=== PATIENT | male | born 1955 | race Two or more races ===

== ENCOUNTER 2020-12-03 09:59 | Outpatient (REF) | payer OTHER, SELFPAY ==
[2020-12-03 11:21] LABS: MANUAL DIFF FLAG NO
[2020-12-03 11:42] LABS: Basophils Absolute Auto 0.1 X10*3/uL (0.0-0.2); Basophils Percent Auto 0.8 % (0-2); Eosinophils Absolute Auto 0.2 X10*3/uL (0.0-0.4); Eosinophils Percent Auto 2.3 % (0-4); Hematocrit 52.4 % (42-52); Hemoglobin 17.1 g/dl (14.0-18.0); Imm Gran Abs Auto 0.09 X10*3/uL (0.00-0.03); Imm Gran Pct Auto 0.9 % (0.0-0.4); Lymphocytes Absolute Auto 2.7 X10*3/uL (1.2-4.9); Lymphocytes Percent Auto 26.2 % (20-40); Mean Corpuscular HGB Conc 32.6 g/dl (31.0-36.0); Mean Corpuscular Hemoglobin 28.3 pg (27.0-33.0); Mean Corpuscular Volume 86.8 fL (80-98); Mean Platelet Volume 10.2 fL (9.4-12.4); Monocytes Absolute Auto 0.8 X10*3/uL (0.1-1.2); Monocytes Percent Auto 7.9 % (2-11); Neutrophils Absolute Auto 6.4 X10*3/uL (2.0-8.3); Neutrophils Percent Auto 61.9 % (45-73); Platelet Count 285 X10*3/uL (160-400); Red Blood Count 6.04 X10*6/uL (4.60-5.80); Red Cell Distribution Width 18.6 % (11.0-16.0); White Blood Count 10.4 X10*3/uL (4.8-10.8)
[2020-12-03 12:14] LABS: Alanine Aminotransferase 40 U/L (0-40); Albumin Level 3.9 g/dL (3.5-5.0); Alkaline Phosphatase 151 U/L (39-117); Anion Gap 14 (12-20); Aspartate Amino Transferase 27 U/L (5-37); Bilirubin Total 0.3 mg/dL (0.0-1.0); Blood Urea Nitrogen 14 mg/dL (9-16); Calcium 9.7 mg/dL (8.4-10.2); Carbon Dioxide 26 mmol/L (22-29); Chloride 101 mmol/L (96-108); Cholesterol 183 mg/dL; Estimated Glomerular Filt Rate > 60; Glucose Random 114 mg/dL (60-115); HDL Cholesterol 30 mg/dL; Potassium 4.2 mmol/L (3.3-5.1); Sodium 137 mmol/L (135-145); Total Protein 8.1 g/dL (6.5-8.0); Triglycerides 810 mg/dL
[2020-12-03 12:27] LABS: Vitamin B12 607 pg/mL (200-900)
[2020-12-03 13:07] LABS: Estimated Average Glucose 128 mg/dL; Hemoglobin A1c % 6.1 %
== END 2020-12-03 10:00 | disposition home or self-care (01) ==
LOC: HO.LAB 09:59
PROVIDERS: PCP Internal Medicine; Visit Provider Internal Medicine
DX: Z00.00 Encounter for general adult medical examination without abnormal findings (principal); E78.00 Pure hypercholesterolemia, unspecified; I10 Essential (primary) hypertension; R73.01 Impaired fasting glucose; F17.200 Nicotine dependence, unspecified, uncomplicated
CPT/HCPCS: 36415; 80053; 80061; 82607; 83036; 85025

== ENCOUNTER 2021-07-03 08:48 | Outpatient (REF) | payer OTHER, SELFPAY ==
[2021-07-03 08:55] LABS: MANUAL DIFF FLAG NO
[2021-07-03 10:04] LABS: Basophils Absolute Auto 0.1 X10*3/uL (0.0-0.2); Basophils Percent Auto 0.5 % (0-2); Eosinophils Absolute Auto 0.3 X10*3/uL (0.0-0.4); Hematocrit 49.5 % (42.0-52.0); Hemoglobin 15.7 g/dl (14.0-18.0); Imm Gran Abs Auto 0.08 X10*3/uL (0.00-0.03); Imm Gran Pct Auto 0.7 % (0.0-0.4); Lymphocytes Absolute Auto 3.6 X10*3/uL (1.2-4.9); Lymphocytes Percent Auto 31.8 % (20-40); Mean Corpuscular HGB Conc 31.7 g/dl (31.0-36.0); Mean Corpuscular Hemoglobin 28.3 pg (27.0-33.0); Mean Corpuscular Volume 89.4 fL (80.0-98.0); Mean Platelet Volume 10.3 fL (9.4-12.4); Monocytes Absolute Auto 1.1 X10*3/uL (0.1-1.2); Monocytes Percent Auto 10.1 % (2-11); Neutrophils Absolute Auto 6.1 x10*3/uL (2.0-8.3); Neutrophils Percent Auto 53.9 % (45-73); Platelet Count 269 X10*3/uL (160-400); Red Blood Count 5.54 X10*6/uL (4.60-5.80); Red Cell Distribution Width 16.9 % (11.0-16.0); White Blood Count 11.3 X10*3/uL (4.8-10.8)
[2021-07-03 10:14] LABS: Estimated Average Glucose 134 mg/dL; Hemoglobin A1c % 6.3 %
[2021-07-03 10:28] LABS: Alanine Aminotransferase 32 U/L (0-40); Alkaline Phosphatase 91 U/L (39-117); Anion Gap 13 (12-20); Aspartate Amino Transferase 27 U/L (5-37); Bilirubin Total 0.5 mg/dL (0.0-1.0); Blood Urea Nitrogen 11 mg/dL (9-16); Calcium 9.6 mg/dL (8.4-10.2); Carbon Dioxide 29 mmol/L (22-29); Chloride 99 mmol/L (96-108); Cholesterol 153 mg/dL; Estimated Glomerular Filt Rate 52; Glucose Random 104 mg/dL (60-115); HDL Cholesterol 31 mg/dL; LDL Cholesterol Calculated 64 mg/dl; Potassium 5.2 mmol/L (3.3-5.1); Sodium 136 mmol/L (135-145); Total Protein 7.4 g/dL (6.5-8.0); Triglycerides 294 mg/dL
[2021-07-03 10:35] LABS: Thyroid Stimulating Hormone 1.76 uIU/mL (0.32-4.0)
== END 2021-07-03 08:49 | disposition home or self-care (01) ==
LOC: HO.LAB 08:48
PROVIDERS: PCP Internal Medicine; Visit Provider Internal Medicine
DX: I10 Essential (primary) hypertension (principal); K42.0 Umbilical hernia with obstruction, without gangrene; R73.01 Impaired fasting glucose; Z72.0 Tobacco use
CPT/HCPCS: 36415; 80053; 80061; 82043; 83036; 84443; 85025

== ENCOUNTER 2021-07-05 08:20 | Outpatient (REF) | payer OTHER, SELFPAY ==
[2021-07-05 08:59] LABS: Creatinine Urine 77.81 mg/dL; Microalbum/Creatinine Ratio Ur 14.1 ug/mg cr
== END 2021-07-05 08:21 | disposition home or self-care (01) ==
LOC: HO.LNP 08:20
PROVIDERS: Visit Provider Internal Medicine
DX: I10 Essential (primary) hypertension (principal); K42.0 Umbilical hernia with obstruction, without gangrene; R73.01 Impaired fasting glucose; Z72.0 Tobacco use
CPT/HCPCS: 82043

== ENCOUNTER 2021-10-05 08:21 | Outpatient (REF) | payer OTHER, SELFPAY ==
[2021-10-05 10:00] LABS: Estimated Average Glucose 140 mg/dL; Hemoglobin A1c % 6.5 %
[2021-10-05 10:18] LABS: Alanine Aminotransferase 21 U/L (0-40); Albumin Level 3.9 g/dL (3.5-5.0); Alkaline Phosphatase 82 U/L (39-117); Anion Gap 15 (12-20); Aspartate Amino Transferase 20 U/L (5-37); Bilirubin Total 0.4 mg/dL (0.0-1.0); Blood Urea Nitrogen 22 mg/dL (9-16); Calcium 9.6 mg/dL (8.4-10.2); Carbon Dioxide 25 mmol/L (22-29); Chloride 99 mmol/L (96-108); Estimated Glomerular Filt Rate 48; Glucose Random 104 mg/dL (60-115); Sodium 134 mmol/L (135-145); Total Protein 7.2 g/dL (6.5-8.0)
[2021-10-05 10:33] LABS: Ferritin 27 ng/mL (20-250)
[2021-10-05 10:49] LABS: Vitamin B12 514 pg/mL (200-900)
== END 2021-10-05 08:22 | disposition home or self-care (01) ==
LOC: HO.LAB 08:21
PROVIDERS: PCP Internal Medicine; Visit Provider Internal Medicine
DX: Z00.00 Encounter for general adult medical examination without abnormal findings (principal); D64.9 Anemia, unspecified; E11.9 Type 2 diabetes mellitus without complications; E78.00 Pure hypercholesterolemia, unspecified; N18.9 Chronic kidney disease, unspecified
CPT/HCPCS: 36415; 80053; 82607; 82728; 83036

== ENCOUNTER 2021-10-13 08:55 | Outpatient (REF) | payer OTHER, SELFPAY ==
--- NOTE | ~2021-10-13 | US_ITS ---
EXAMINATION: US COMPLETE ABDOMEN WITH LIVER ELASTOGRAPHY CLINICAL INFORMATION: Alcoholic liver disease. COMPARISON: None. TECHNIQUE: Real-time imaging of the abdominal viscera. Noninvasive ultrasound liver fibrosis assessment is performed using Srini ElastPQ point quantification shear wave elastography (2D-SWE) with a C5-2 MHz transducer. Multiple elastography samples are obtained. FINDINGS: PANCREAS: The entire pancreas is obscured by overlying gas. ABDOMINAL AORTA: The proximal, middle, and distal aortic segments are normal in caliber. INFERIOR VENA CAVA: Visualized portions are normal. LIVER: The liver demonstrates normal size, contour and increased echogenicity. No focal lesion or intrahepatic biliary duct dilatation. The right lobe measures 14.3 cm in length. The left lobe measures 10.8 cm in length. Portal flow is hepatopedal. Shear wave liver elastography median stiffness is 1.61 m/s (reference: normal median stiffness is 1.3 m/s or less). IQR/median stiffness to assess sampling precision is 0.34 (reference: good quality data set is IQR/median stiffness of 0.15 or less). GALLBLADDER: The gallbladder appears partially calcified with ring-down artifact suggestive of adenomyomatosis versus cholesterolosis. No echogenic stones or perigallbladder fluid collection seen. COMMON BILE DUCT: Normal in caliber measuring 0.3 cm in diameter. RIGHT KIDNEY: Normal. No hydronephrosis. No renal calculi or focal parenchymal lesions. The kidney measures 11.5 cm in maximum dimension. LEFT KIDNEY: Normal. No hydronephrosis. No renal calculi or focal parenchymal lesions. The kidney measures 10.5 cm in maximum dimension. SPLEEN: Normal. The spleen measures 7.7 cm in maximum dimension. FREE FLUID: None. US/US abdomen comp w elastography IMPRESSION: 1. Hepatic steatosis without focal lesion. Calcified ring-down artifact gallbladder likely adenomyomatosis or cholesterolosis. No free mobile echogenic stones. Borderline gallbladder thickness measuring 0.3 cm. Rest of the visualized abdominal ultrasound is unremarkable. 2. Liver elastography: Median liver stiffness 1.61 suggestive of cACLD (ruled out). REFERENCE: Society of Radiologists in Ultrasound Liver Stiffness Thresholds (2019): LIVER STIFFNESS THRESHOLDS: *Liver Stiffness equal or less than 1.3 m/s: High probability of being normal. *Liver Stiffness less than 1.7 m/s: In the absence of other known clinical signs, rules out compensated advanced chronic liver disease. *Liver Stiffness 1.7-2.1 m/s: Suggestive of compensated advanced chronic liver disease but need further test for confirmation. *Liver Stiffness over 2.1 m/s: Rules in compensated advanced chronic liver disease. *Liver Stiffness over 2.4 m/s: Suggestive of clinically significant portal hypertension. QUALITY OF DATA SET: *IQR/Median value equal or less than 0.15 implies a quality data set. *IQR/Median value over 0.15 implies a poor quality data set. SIGNIFICANT CHANGE FROM PRIOR EXAM: Significant change if liver stiffness measurement is 10% or greater from prior exam. OTHER CONSIDERATIONS: The stage of liver fibrosis may be overestimated in the setting of acute hepatitis, liver inflammation, elevated liver function tests, hepatic vascular congestion, obstructive cholestasis, non-fasting state, and infiltrative diseases such as amyloidosis and lymphoma. In some patients with NAFLD, the liver stiffness thresholds for compensated advanced chronic liver disease may be lower. In causes other than viral hepatitis and NAFLD, liver stiffness thresholds are not well established.
[2021-10-13 10:06] LABS: MANUAL DIFF FLAG NO
[2021-10-13 10:32] LABS: Basophils Absolute Auto 0.1 X10*3/uL (0.0-0.2); Basophils Percent Auto 0.5 % (0-2); Eosinophils Absolute Auto 0.2 X10*3/uL (0.0-0.4); Eosinophils Percent Auto 1.9 % (0-4); Hematocrit 53.1 % (42.0-52.0); Hemoglobin 16.7 g/dl (14.0-18.0); Imm Gran Abs Auto 0.07 X10*3/uL (0.00-0.03); Imm Gran Pct Auto 0.6 % (0.0-0.4); Lymphocytes Absolute Auto 2.9 X10*3/uL (1.2-4.9); Lymphocytes Percent Auto 26.6 % (20-40); Mean Corpuscular HGB Conc 31.5 g/dl (31.0-36.0); Mean Corpuscular Hemoglobin 27.5 pg (27.0-33.0); Mean Corpuscular Volume 87.3 fL (80.0-98.0); Mean Platelet Volume 9.3 fL (9.4-12.4); Monocytes Absolute Auto 0.9 X10*3/uL (0.1-1.2); Monocytes Percent Auto 8.3 % (2-11); NRBC Pct Auto 0.2 /100WBC (0.0-0.2); Neutrophils Absolute Auto 6.8 x10*3/uL (2.0-8.3); Neutrophils Percent Auto 62.1 % (45-73); Platelet Count 349 X10*3/uL (160-400); Red Blood Count 6.08 X10*6/uL (4.60-5.80); Red Cell Distribution Width 18.1 % (11.0-16.0)
[2021-10-13 10:50] LABS: Prothrombin Time 11.5 SEC (9.9-13.0)
[2021-10-13 11:22] LABS: Alanine Aminotransferase 34 U/L (0-40); Alkaline Phosphatase 96 U/L (39-117); Aspartate Amino Transferase 24 U/L (5-37); Bilirubin Direct 0.2 mg/dL (0.0-0.5); Bilirubin Total 0.3 mg/dL (0.0-1.0); Total Protein 7.4 g/dL (6.5-8.0)
== END 2021-10-13 08:56 | disposition home or self-care (01) ==
LOC: HO.US 08:55
PROVIDERS: PCP Internal Medicine; Visit Provider Internal Medicine
DX: K70.9 Alcoholic liver disease, unspecified (principal)
CPT/HCPCS: 36415; 76705; 76981; 80076; 82105; 85025; 85610

== ENCOUNTER 2021-10-18 09:56 | Day surgery (SDC) | payer OTHER, SELFPAY ==
[2021-10-12 16:22] VITALS: BMI 34.0
--- NOTE | 2021-10-18 10:55 | HO.ANESPROP2 ---
HPI - Anesthesia Eval Consult details Narrative: Screening Colonoscopy [facility] Past Medical History Medical History (Updated 10/12/21 @ 16:10 by Brea David, RN) Dementia Depression Elevated cholesterol HTN (hypertension) Peripheral neuropathy Family History Family history of problems with anesthesia: No Surgical History Surgical History (Updated 10/12/21 @ 16:10 by Bera David, RN) Hx of colonoscopy History of Problems with Anesthesia: No Social History Social History Advance Directives: No Advance Directives Information Provided: Yes Meds Allergies Allergy/AdvReac Type Severity Reaction Status Date / Time DELORES Inhibitors Allergy Unknown Verified 10/12/21 16:22 nicotine [From Nicoderm CQ] Allergy Unknown Verified 10/12/21 16:22 Active Medications: Current Medications Lactated Ringer's (Lr) 1,000 mls @ 50 mls/hr IVCONT .Q20H IRIS Sodium Biphosphate/Sodium Phosphate (Sodium Phosphate,[place]-Dibasic 133 Ml Enema) 133 ml AR ONCE PRN PRN Reason: Poor Colonoscopy Prep Results Home Medications Medication Instructions Recorded Confirmed Last Taken Type amlodipine 10 mg tablet 1 tab PO DAILY 10/12/21 10/18/21 10/18/21 06:00 History atorvastatin 10 mg tablet 1 tab PO BEDTIME 10/12/21 10/12/21 Unknown History bisacodyl 5 mg tablet,delayed 2 tab PO BID 10/12/21 10/12/21 Unknown History release donepezil 10 mg tablet 1 tab PO DAILY 10/12/21 10/12/21 Unknown History lisinopril 20 1 tab PO DAILY 10/12/21 10/12/21 Unknown History mg-hydrochlorothiazide 25 mg tablet metformin 500 mg tablet 1 tab PO BID 10/12/21 10/12/21 Unknown History polyethylene glycol 3350 17 bottle PO DAILY 10/12/21 Unknown History gram/dose oral powder trazodone 50 mg tablet 1 tab PO BEDTIME 10/12/21 10/12/21 Unknown History Exam Exam Date and Time: October 18, 2021 1055 Height,Weight and Vital Signs: Height 5 ft 3 in Weight 87.09 kg Airway Mallampati Class: II TM Dist: >3cm Neck ROM: Full Denture: Upper and Lower Loose/Missing/Broken Teeth: No Heart: [id number] Lungs: cta b/l Assessment and Plan Assessment Anesthesia Assessment: Anesthesia Plan Discussed and Chart Reviewed Final Anesthetic Review Family History of Problems with Anesthesia: No History of Problems with Anesthesia: No NPO: Yes ASA Class: III Final Preanesthetic Review: No Changes in Pt Med Stat, Meds/Allgs Chart Reviewed, Consent Obtained/Reviewed and Anes Risks/Benef Reviewed Patient Risk: Intermediate Procedure Risk: Low Assessment/Block/Sedation in SS: Assess/Block/Sedation-SS Anesthetic Plan Anesthetic Plan: MAC: and Agree w/ Assess. and Plan Disposition: Standard PACU
[2021-10-18 11:01] VITALS: BMI 34.0
[2021-10-18 11:02] VITALS: BP 107/71; PULSE 105; RESP 16; TEMP 37.7; O2SAT 94
[2021-10-18] MEDS: Albuterol/Iprat 2.5/0.5MG 3 ML AMPUL.NEB INHALE (11:20)
[2021-10-18 11:23] VITALS: PULSE 108; O2SAT 96
[2021-10-18] MEDS: Lactated Ringers 1,000 ML 50 ML IVCONT (11:46)
[2021-10-18 12:57] VITALS: BP 98/64; PULSE 108; RESP 18; TEMP 36.7; O2SAT 90
--- NOTE | 2021-10-18 12:58 | P.BOP_ITS ---
Brief Operative Note Date of Service: 10/18/21 Pre-op diagnosis: Screening Post-op diagnosis: other (Colon polyps) Procedure: Colonoscopy to the cecum and TI with hot snare polypectomy x 3, and placement of 1 Resolution clip on the TC polypectomy site Surgeon: Marcos Sierra Anesthesia: MAC Was an Coating Engineer used for this Procedure?: No Estimated blood loss (mL): 2.0 Pathology: other (A. Ascending colon polyps B. Transverse colon polyp) Condition: stable Disposition: PACU
--- NOTE | 2021-10-18 13:51 | OP_ITS ---
SURGEON: Marcos Sierra MD INDICATIONS: The patient presents for evaluation of colorectal cancer screening. Full consent was obtained from the patient for this, including risks of bleeding and perforation. PREOPERATIVE DIAGNOSIS: Colorectal cancer screening. POSTOPERATIVE DIAGNOSIS: PROCEDURE PERFORMED: Colonoscopy to the cecum and terminal ileum with hot snare polypectomies, and placement of Resolution Clip on the transverse colon polypectomy. ESTIMATED BLOOD LOSS: COMPLICATIONS: ANESTHESIA: Monitored anesthesia care. ASSISTANTS: SPECIMENS: POSTOPERATIVE DIAGNOSES: Colorectal cancer screening, colon polyps, sigmoid diverticulosis, and internal hemorrhoids. DESCRIPTION OF PROCEDURE: The patient was placed in the left lateral decubitus position. The digital rectal exam revealed no abnormalities. The Olympus video pediatric colonoscope was entered into the rectum advanced easily to the cecum. Once in the cecum, I did identify normal-appearing cecal pouch with appendiceal orifice and a normal-appearing ileocecal valve. The terminal ileum was cannulated and appeared normal. Scope withdrawn back in the colon. The entire cecum and ileocecal valve appeared normal. The scope was slowly withdrawn assessing all mucosal surfaces carefully. Preparation was excellent. In the ascending colon were 2 approximately 6 to 8 mm polyps, which were removed with hot snare polypectomy and recovered by suction. Both polypectomy sites appeared clean, without any sign of residual polyp nor bleeding. In the transverse colon was an approximately 8 mm polyp, which was removed by hot snare polypectomy and recovered by suction. There was some minimal oozing at the polypectomy site and this was controlled with a single Resolution Clip with good deployment and good hemostasis. I did not visualize any other polyps, colitis, nor angiodysplasia. There was a mild amount of sigmoid diverticulosis. In the rectum, scope was retroflexed visualizing internal hemorrhoids, but no other pathology. The rectal mucosa appeared normal. The scope was straightened and withdrawn from the patient. He tolerated the procedure well and was returned to recovery area in stable condition. IMPRESSION: 1. Colon polyps, status post hot snare polypectomy, and placement of a single Resolution Clip on the transverse colon polypectomy site. 2. Diverticulosis. 3. Internal hemorrhoids. PLAN: The results of the pathology will be checked. If these are tubular adenoma, I would recommend a followup colonoscopy in 5 years. If they are only hyperplastic, I would recommend a followup colonoscopy in 10 years. He was advised not to use any aspirin and NSAIDs for 1 week. This has been discussed with his daughter. MD COLLETTE Thomas/JAVON / [id number]
== END 2021-10-18 13:49 | disposition home or self-care (01) ==
PROVIDERS: PCP Internal Medicine; Visit Provider Internal Medicine
PROC: 0DJD8ZZ Inspection of Lower Intestinal Tract, Via Natural or Artificial Opening Endoscopic (ICD-10-PCS; CPT 45378; principal; 2021-10-18 11:10)
DX: Z12.11 Encounter for screening for malignant neoplasm of colon (principal); D12.2 Benign neoplasm of ascending colon; D12.3 Benign neoplasm of transverse colon; K57.30 Diverticulosis of large intestine without perforation or abscess without bleeding; K64.8 Other hemorrhoids; I10 Essential (primary) hypertension; E78.00 Pure hypercholesterolemia, unspecified; K70.9 Alcoholic liver disease, unspecified; F10.11 Alcohol abuse, in remission; F03.90 Unspecified dementia, unspecified severity, without behavioral disturbance, psychotic disturbance, mood disturbance, and anxiety; F32.9 Major depressive disorder, single episode, unspecified; G62.9 Polyneuropathy, unspecified; Z79.899 Other long term (current) drug therapy; F17.210 Nicotine dependence, cigarettes, uncomplicated
CPT/HCPCS: 45385; 88305; 94640

== ENCOUNTER → 2021-11-09 15:26 | Outpatient (BNVA) | payer OTHER, SELFPAY | PROVIDERS: PCP Internal Medicine; Visit Provider Surgery Vascular Surgery | DX: I73.9 Peripheral vascular disease, unspecified (principal) | CPT/HCPCS: 99202 ==

== ENCOUNTER 2021-12-01 13:52 | Outpatient (REF) | payer OTHER, SELFPAY ==
--- NOTE | ~2021-12-01 | US_ITS ---
EXAMINATION: COLOR-FLOW DUPLEX IMAGING OF THE BILATERAL LOWER EXTREMITY ARTERIAL SYSTEM. VELOCITY MEASUREMENTS THROUGHOUT THE FEMORAL ARTERIES WITH ANKLE-BRACHIAL PERIPHERAL ARTERIAL TESTING. Interventional Radiologist: Jaylan Mcconnell M.D., F.S.I.R., F.A.C.R. CLINICAL INFORMATION: This is a 66-year-old male with peripheral vascular disease. RIGHT FEMORAL RUNOFF VELOCITIES: The right common femoral artery measures 173 cm/s and monophasic. The right profunda femoral artery is 114 cm/s and is monophasic. Right proximal superficial femoral artery measures 87 cm/s and monophasic. Mid superficial femoral artery is 56 cm/s and monophasic. Distal right superficial femoral artery measures 49 cm/s and is monophasic. Right popliteal velocity measures 56 cm/s and is monophasic. The posterior tibial artery velocity measures 20 cm/s and was monophasic. The right ankle-brachial index is 0.47. LEFT FEMORAL RUNOFF VELOCITIES: The left common femoral artery measures 153 cm/s and monophasic. The left profunda femoral artery is 81 cm/s and is monophasic. Left proximal superficial femoral artery measures 120 cm/s and monophasic. Mid superficial femoral artery is 111 cm/s and monophasic. Distal left superficial femoral artery measures 68 cm/s and is monophasic. Left popliteal velocity measures 95 cm/s and is monophasic. The posterior tibial artery velocity measures 60 cm/s and was monophasic. The left ankle-brachial index is 0.60. Note: The left dorsalis pedis was not audible. US/US arterial duplex LE BI IMPRESSION: 1. Abnormal peripheral arterial testing with abnormal left ankle-brachial index but with normal velocity measurements. 2. Given the presence of bilateral monophasic waveforms and normal velocities the possibility of hemodynamically significant inflow disease in the aortoiliac segment should be considered.
--- NOTE | ~2021-12-01 | US_ITS ---
EXAMINATION: COLOR-FLOW DUPLEX IMAGING OF THE BILATERAL LOWER EXTREMITY ARTERIAL SYSTEM. VELOCITY MEASUREMENTS THROUGHOUT THE FEMORAL ARTERIES WITH ANKLE-BRACHIAL PERIPHERAL ARTERIAL TESTING. Interventional Radiologist: Jaylan Mcconnell M.D., F.S.I.R., F.A.C.R. CLINICAL INFORMATION: This is a 66-year-old male with peripheral vascular disease. RIGHT FEMORAL RUNOFF VELOCITIES: The right common femoral artery measures 173 cm/s and monophasic. The right profunda femoral artery is 114 cm/s and is monophasic. Right proximal superficial femoral artery measures 87 cm/s and monophasic. Mid superficial femoral artery is 56 cm/s and monophasic. Distal right superficial femoral artery measures 49 cm/s and is monophasic. Right popliteal velocity measures 56 cm/s and is monophasic. The posterior tibial artery velocity measures 20 cm/s and was monophasic. The right ankle-brachial index is 0.47. LEFT FEMORAL RUNOFF VELOCITIES: The left common femoral artery measures 153 cm/s and monophasic. The left profunda femoral artery is 81 cm/s and is monophasic. Left proximal superficial femoral artery measures 120 cm/s and monophasic. Mid superficial femoral artery is 111 cm/s and monophasic. Distal left superficial femoral artery measures 68 cm/s and is monophasic. Left popliteal velocity measures 95 cm/s and is monophasic. The posterior tibial artery velocity measures 60 cm/s and was monophasic. The left ankle-brachial index is 0.60. Note: The left dorsalis pedis was not audible. US/US BRITTANY complete IMPRESSION: 1. Abnormal peripheral arterial testing with abnormal left ankle-brachial index but with normal velocity measurements. 2. Given the presence of bilateral monophasic waveforms and normal velocities the possibility of hemodynamically significant inflow disease in the aortoiliac segment should be considered.
== END 2021-12-01 13:53 | disposition home or self-care (01) ==
LOC: HO.US 13:52
PROVIDERS: Visit Provider Surgery Vascular Surgery
DX: I73.9 Peripheral vascular disease, unspecified (principal)
CPT/HCPCS: 93923; 93925

== ENCOUNTER → 2021-12-09 15:17 | Outpatient (BNVA) | payer OTHER, SELFPAY | PROVIDERS: PCP Internal Medicine; Visit Provider Surgery Vascular Surgery | DX: I73.9 Peripheral vascular disease, unspecified (principal); F17.210 Nicotine dependence, cigarettes, uncomplicated | CPT/HCPCS: 99212 ==

== ENCOUNTER 2021-12-15 05:58 | Day surgery (SDC) | payer OTHER, SELFPAY ==
[2021-12-15] VITALS (8 sets, daily range): BP systolic 98–117; BP diastolic 47–68; PULSE 85–108; RESP 16–18; TEMP 36.4–36.6; O2SAT 92–93; BMI 34.0
[2021-12-15 06:45] LABS: MANUAL DIFF FLAG NO
[2021-12-15 06:51] LABS: Basophils Absolute Auto 0.1 X10*3/uL (0.0-0.2); Basophils Percent Auto 0.4 % (0-2); Eosinophils Absolute Auto 0.2 X10*3/uL (0.0-0.4); Eosinophils Percent Auto 1.7 % (0-4); Hematocrit 51.5 % (42.0-52.0); Imm Gran Abs Auto 0.05 X10*3/uL (0.00-0.03); Imm Gran Pct Auto 0.4 % (0.0-0.4); Lymphocytes Absolute Auto 2.6 X10*3/uL (1.2-4.9); Lymphocytes Percent Auto 23.2 % (20-40); Mean Corpuscular HGB Conc 31.1 g/dl (31.0-36.0); Mean Corpuscular Hemoglobin 26.9 pg (27.0-33.0); Mean Corpuscular Volume 86.6 fL (80.0-98.0); Mean Platelet Volume 9.1 fL (9.4-12.4); Monocytes Percent Auto 8.4 % (2-11); NRBC Pct Auto 0.4 /100WBC (0.0-0.2); Neutrophils Absolute Auto 7.4 x10*3/uL (2.0-8.3); Neutrophils Percent Auto 65.9 % (45-73); Platelet Count 349 X10*3/uL (160-400); Red Blood Count 5.95 X10*6/uL (4.60-5.80); Red Cell Distribution Width 18.6 % (11.0-16.0); White Blood Count 11.3 X10*3/uL (4.8-10.8)
[2021-12-15 07:00] LABS: Blood Urea Nitrogen 17 mg/dL (9-16); Creatinine Clr Calc Pharmacy 55.5; Estimated Glomerular Filt Rate 55
[2021-12-15] MEDS: 0.9 % Sodium Chloride 1,000 ML 100 ML IVCONT (07:07)
--- NOTE | 2021-12-15 09:23 | P.OP_ITS ---
Operative Note Operative Note Date of Service: 12/15/21 Narrative: Angiogram report from [facility] Preoperative diagnosis: Atherosclerosis of left lower extremity with activity limiting claudication Postoperative diagnosis: Same Procedure: 1. Ultrasound-guided right common femoral access 2. Aortogram with bilateral lower extremity runoff 3. Left common iliac stent 4. Right external iliac stent Surgeon:Jose Looney M.D., FACS, RPVI Nut Roaster Helper:None Anesthesia: Local with moderate conscious sedation. Total intraservice moderate sedation time was 68 minutes. I monitored the patient's level of consciousness and physiologic status continuously throughout the procedure. Specimens:none Drains:none Estimated blood loss: Less than 10 ml Implant: [place] VBX left 8x59 and right 6x39 Indications: 66-year-old gentleman with significant activity limiting claudication. There was concern of inflow disease on noninvasive testing. He now presents for endovascular intervention. The patient has signed the informed consent after reviewing risks, complications, benefits, and alternatives previously discussed with the patient. The patient was given the opportunity to ask any additional questions or voice any concerns. All questions were answered to the patient's satisfaction. Procedure in detail: Patient was brought to the angiography suite prior to which a time-out was called for patient identification and site verification. Bilateral groins were prepped and draped in the standard surgical fashion. Under ultrasound guidance right common femoral was punctured with micro puncture needle and wire. Subsequently a precision 5 Divehi sheath was then placed. Bentson wire was advanced to the level of the aorta. 5 Divehi Flush catheter was brought up and parked at the level of the renal arteries. Aortogram was then undertaken. Catheter was brought down to the level of the iliac bifurcation. Iliacs were subsequently imaged. Catheter was then brought in up and over to the left side SFA. Runoff study was then undertaken. Once this was accomplished we recognize that he had bilateral significant iliac disease. We administered 5000 units of systemic heparin. Up and over 7 x 25 sheath was then placed. We were able to advance this over a 035 glidewire Advantage. Once we were in appropriate position the left common iliac and external iliac were imaged. Multiple orthogonal views were undertaken. We then brought in an 8 x 20 regular balloon. We subsequently placed a [place] VBX 8 x 59 balloon expandable stent. Once this was completed completion angiogram demonstrated good result. We brought a catheter into the left SFA. Runoff study was then undertaken. Catheter wire sheath was brought back to the ipsilateral side. Through the sheath we imaged the right common iliac and external iliac. There appear to be a high-grade stenosis in the external iliac. We once again brought in a [place] VBX 6 x 39 balloon expandable covered stent. Once in position completion angiogram demonstrated good result. Through the sheath we completed the right lower extremity runoff study. No additional intervention was indicated. StarClose closure device was deployed. Patient tolerated the procedure well. Returned to recovery with stable vitals. Interpretation of films: 1. Ultrasound demonstrates appropriate femoral puncture. Image of which was saved. 2. Aortogram demonstrates appropriate caliber aorta. Minimal disease, but calcific disease at the aortic worn. take-off of the renals. 3. Iliac images demonstrate left: High-grade stenosis in the common iliac down to the external iliac. Good flow down to the left common femoral. right: Good flow in common iliac external iliac had high-grade stenosis good flow in the common femoral 4. Left Leg Common femoral artery: No significant disease Profundus Femoris: No significant disease Superficial femoral artery: No significant disease Popliteal artery (p1,p2,p3): No significant disease Anterior tibial artery: No significant disease Peroneal artery: No significant disease Posterior tibial artery: No significant disease Dorsalis pedis/plantar arch: Complete arch seen 5. Right Leg Common femoral artery: No significant disease Profundus Femoris: No significant disease Superficial femoral artery: No significant disease Popliteal artery (p1,p2,p3): No significant disease Anterior tibial artery: No significant disease Peroneal artery: No significant disease Posterior tibial artery: No significant disease Dorsalis pedis/plantar arch: Complete arch seen Conclusion: 1. Successful stent of bilateral iliacs 2. Anticoagulation status: Will need 6 months of aspirin and Plavix This note is constructed using voice recognition software. While every effort has been made to ensure accuracy, auto former machine operator errors may have been included. Thank you for allowing me to participate in the care of your patient. Yours sincerely, Jose Looney MD, FACS, R.P.V.I.
[2021-12-15] MEDS: Acetaminophen 325 MG TABLET 650 MG PO (09:27)
[2021-12-15] MEDS: oxyCODONE HCl Immed Release 5 MG TABLET PO (09:28)
[2021-12-15] MEDS: Clopidogrel Bisulfate 300 MG TABLET PO (09:28)
[2021-12-15] MEDS: Morphine Sulfate 4 MG/ML CARTRIDGE IVPUSH (09:32)
[2021-12-15] MEDS: Lidocaine HCl 1 % 20 ML VIAL 10 ML SUBCUT (11:21)
[2021-12-15] MEDS: iohexoL 300 MG/ML 100 ML INFUS..BTL IV (11:21)
== END 2021-12-15 12:06 | disposition home or self-care (01) ==
PROVIDERS: PCP Internal Medicine; Visit Provider Surgery Vascular Surgery
DX: I70.212 Atherosclerosis of native arteries of extremities with intermittent claudication, left leg (principal); I10 Essential (primary) hypertension; G62.9 Polyneuropathy, unspecified; E78.00 Pure hypercholesterolemia, unspecified; F17.210 Nicotine dependence, cigarettes, uncomplicated; F32.9 Major depressive disorder, single episode, unspecified; Z79.899 Other long term (current) drug therapy; Z88.8 Allergy status to other drugs, medicaments and biological substances
CPT/HCPCS: 36415; 37221; 37223; 75630; 76937; 82565; 84520; 85025; 99152; 99153; C1725; C1760; C1769; C1874; C1876; C1887; J2250; J2270; J3010; Q9967

== ENCOUNTER → 2022-01-06 15:31 | Outpatient (BNVA) | payer OTHER, SELFPAY | PROVIDERS: PCP Internal Medicine; Visit Provider Surgery Vascular Surgery | DX: I73.9 Peripheral vascular disease, unspecified (principal) | CPT/HCPCS: 99212 ==

== ENCOUNTER 2022-01-31 17:03 | Outpatient (REF) | payer OTHER, SELFPAY ==
[2022-01-31 18:43] LABS: Alanine Aminotransferase 30 U/L (0-40); Albumin Level 3.8 g/dL (3.5-5.0); Alkaline Phosphatase 127 U/L (39-117); Anion Gap 13 (12-20); Aspartate Amino Transferase 25 U/L (5-37); Bilirubin Total 0.4 mg/dL (0.0-1.0); Blood Urea Nitrogen 24 mg/dL (9-16); Calcium 8.9 mg/dL (8.4-10.2); Carbon Dioxide 32 mmol/L (22-29); Chloride 99 mmol/L (96-108); Cholesterol 123 mg/dL; Estimated Glomerular Filt Rate 47; Glucose Random 91 mg/dL (60-115); HDL Cholesterol 36 mg/dL; LDL Cholesterol Calculated 68 mg/dl; Sodium 138 mmol/L (135-145); Total Protein 7.5 g/dL (6.5-8.0); Triglycerides 97 mg/dL
[2022-02-01 05:43] LABS: Estimated Average Glucose 148 mg/dL; Hemoglobin A1c % 6.8 %
== END 2022-01-31 17:04 | disposition home or self-care (01) ==
LOC: HO.LAB 17:03
PROVIDERS: PCP Internal Medicine; Visit Provider Internal Medicine
DX: E11.9 Type 2 diabetes mellitus without complications (principal); N18.9 Chronic kidney disease, unspecified; Z72.0 Tobacco use; Z86.010 Personal history of colon polyps
CPT/HCPCS: 36415; 80053; 80061; 83036